=== PATIENT | male | born 1950 | race Caucasian/White ===

== ENCOUNTER 2020-01-21 08:00 | Outpatient (CLI) | payer MEDICARE | END 2020-01-21 08:01 | disposition critical access hospital (66) | LOC: EMS 08:00 | PROVIDERS: ATTEND Surgery | DX: R10.9 Unspecified abdominal pain (principal); R11.0 Nausea; R53.1 Weakness | CPT/HCPCS: A0425; A0427 ==

== ENCOUNTER 2020-01-21 08:28 | Emergency (ER) | payer MEDICARE ==
[2020-01-21] MEDS ORDERED: KETOROLAC 30 MG/ML VIAL IVP STA (08:35)
[2020-01-21] MEDS ORDERED: HYDROmorphone 1 MG/ML CARPUJECT IVP STA (08:38)
[2020-01-21] MEDS ORDERED: LIDOCAINE-MPF 2% 7.5 ML in SODIUM CHLORIDE 0.9% 50 ML IV STA (08:40)
[2020-01-21] MEDS ORDERED: SODIUM CHLORIDE 0.9% 1,000 ML IV STA ×2 (08:40→11:26)
--- NOTE | 2020-01-21 08:46 | ED Physician Documentation ---
History of Present Illness - Stated complaint Stated Complaint: FLANK PAIN - Chief complaint Chief Complaint: Abd Pain - History obtained from History obtained from: Patient, EMS - History of Present Illness Timing: Today Pain level max: 10 Pain level now: 10 Quality: stabbing - Additonal information Additional information: 69-year-old male presents to the emergency department with right flank pain. This started approximately 3 hours ago. Rated as 10 out of 10. Nonradiating. Nothing makes it better or worse. Does not take any medications at home. Has never had similar symptoms in the past. Review of Systems Ten Systems: 10 systems reviewed and negative Constitutional: denies: Fever, Chills Ears: denies: Ear pain Nose: denies: Rhinorrhea / runny nose, Congestion PD PAST MEDICAL HISTORY - Past Medical History Past Medical History: No - Present Medications Home Medications: Ambulatory Orders Medication Instructions Recorded Confirmed Ibuprofen [Motrin] 800 mg PO Q8H PRN #30 tablet 01/21/20 Ondansetron Odt [Zofran] 4 mg TL Q6H PRN #10 tablet 01/21/20 Oxycodone HCl/Acetaminophen 1 - 2 each PO Q6H PRN #14 tablet 01/21/20 [Percocet 5-325 mg Tablet] - Allergies Allergies/Adverse Reactions: Allergies Allergy/AdvReac Type Severity Reaction Status Date / Time Sulfa (Sulfonamide Allergy Unknown Verified 01/21/20 08:52 Antibiotics) - Living Situation Living Arrangement: reports: At home - Social History Does the pt drink ETOH?: Yes - Family History Family history: reports: Non contributory PD ED PE NORMAL - Vitals Vital signs reviewed: Yes - General General: Alert and oriented X 3, No acute distress, Other (Appears in pain) - HEENT HEENT: PERRL, Moist mucous membranes - Neck Neck: Supple, no meningeal sign - Cardiac Cardiac: RRR, Strong equal pulses - Respiratory Respiratory: No respiratory distress, Clear bilaterally - Abdomen Abdomen: Soft, Non tender, Non distended - Back Back: No CVA TTP, No spinal TTP - Derm Derm: Warm and dry - Extremities Extremities: No edema, No calf tenderness / cord - Neuro Neuro: Alert and oriented X 3, No motor deficit, No sensory deficit - Psych Psych: Normal mood, Normal affect Results - Vitals Vitals: Vital Signs - 24 hr 01/21/20 01/21/2020 08:28 09:35 10:00 Temperature 36.9 C Heart Rate 83 82 68 Respiratory 26 H 16 16 Rate Blood Pressure 109/44 L 168/99 H 159/94 H O2 Saturation 96 94 94 01/21/20 12:56 Temperature 36.8 C Heart Rate 66 Respiratory 18 Rate Blood Pressure 157/104 H O2 Saturation 95 Oxygen O2 Source Room air - Labs Labs: Laboratory Tests 01/21/20 01/21/20 01/21/20 08:52 08:52 12:30 WBC 10.6 RBC 5.01 Hgb 15.6 Hct 45.8 MCV 91.4 MCH 31.1 H MCHC 34.1 RDW 12.3 Plt Count 162 MPV 9.0 Neut # (Auto) 8.8 H Lymph # (Auto) 1.0 L [place] # (Auto) 0.7 Eos # (Auto) 0.0 Baso # (Auto) 0.1 Absolute Nucleated RBC 0.00 Nucleated RBC % 0.0 Sodium 140 Potassium 4.3 Chloride 106 Carbon Dioxide 24 Anion Gap 10.0 BUN 19 Creatinine 1.2 Estimated GFR (MDRD) 60 L Glucose 122 H Calcium 9.0 Total Bilirubin 0.8 AST 23 ALT 31 Alkaline Phosphatase 50 Total Protein 7.4 Albumin 4.2 Globulin 3.2 Albumin/Globulin Ratio 1.3 Lipase 23 Urine Color YELLOW Urine Clarity CLEAR Urine pH 7.0 Ur Specific [place] 1.020 Urine Protein NEGATIVE Urine Glucose (UA) NEGATIVE Urine Ketones NEGATIVE Urine Occult Blood NEGATIVE Urine Nitrite NEGATIVE Urine Bilirubin NEGATIVE Urine Urobilinogen 0.2 (NORMAL) Ur Leukocyte Esterase NEGATIVE Ur Microscopic Review NOT INDICATED Urine Culture Comments NOT INDICATED - Rads (name of study) CT abd.pelvis Radiology: Prelim report reviewed, EMP read contemporaneously, See rad report (Obstructing calculus in the right proximal ureter measuring 3-4 mm producing mild-moderate hydroureteronephrosis. ) PD MEDICAL DECISION MAKING - ED course Complexity details: reviewed results, re-evaluated patient, considered differential, d/w patient ED course: Patient with a right-sided ureteral stone. Pain resolved with Dilaudid, Toradol and IV lidocaine. Given IV fluids. No evidence of infection. Will prescribe pain medication for home and have him follow-up with his doctor for further care. Patient is well-appearing, nontoxic. Afebrile. No evidence of sepsis. Patient counseled regarding signs and symptoms for which I believe and urgent re-evaluation would be necessary. Patient with good understanding of and agr eement to plan and is comfortable going home at this time This document was made in part using voice recognition software. While efforts are made to proofread this document, sound alike and grammatical errors may occur. Departure - Departure Disposition: 01 Home, Self Care Clinical Impression: Kidney stone Condition: Good Instructions: ED Stone Renal W Colic Follow-Up: your,doctor in 1 week [Other] Prescriptions: Ibuprofen [Motrin] 800 mg PO Q8H PRN #30 tablet PRN Reason: PAIN &/OR FEVER Oxycodone HCl/Acetaminophen [Percocet 5-325 mg Tablet] 1 - 2 each PO Q6H PRN #14 tablet PRN Reason: pain Ondansetron Odt [Zofran] 4 mg TL Q6H PRN #10 tablet PRN Reason: Nausea / Vomiting Comments: You do have you have a 3 mm kidney stone. Follow-up with your doctor for further care. Return if you worsen. Do not drink alcohol or drive while on narcotic pain medicine. Note that many narcotic pain relievers also contain tylenol/acetaminophen. Please ensure that your total dose of acetaminophen from all sources does not exceed 3 grams (3000mg) per day. You may constipated on this medication, take a stool softener such as "Colace" twice a day while you are on it. Also recommend a [id number] laxative such as senna or MiraLAX any day that you do not have a bowel movement. If you received narcotic pain medication in the emergency department, do not drive or operate machinery for the next 24 hours.
[2020-01-21 09:02] LABS: BASOPHILS # (AUTO) 0.1 10^3/uL (0.0-0.1); BASOPHILS % (AUTO) 0.5 %; EOSINOPHILS % (AUTO) 0.4 %; HGB - HEMOGLOBIN 15.6 g/dL (14.0-18.0); LYMPHOCYTES % (AUTO) 9.4 %; MEAN CORPUSCULAR HEMOGLOBIN 31.1 pg (27.0-31.0); MEAN CORPUSCULAR HGB CONC 34.1 g/dL (32.0-36.0); MEAN CORPUSCULAR VOLUME 91.4 fL (80.0-94.0); MONOCYTES # (AUTO) 0.7 10^3/uL (0.0-1.0); MONOCYTES % (AUTO) 6.4 %; NEUTROPHILS # (AUTO) 8.8 10^3/uL (1.5-6.6); PLT - PLATELET COUNT 162 10^3/uL (130-450); RED BLOOD COUNT 5.01 10^6/uL (4.70-6.10); RED CELL DISTRIBUTION WIDTH 12.3 % (12.0-15.0); WHITE BLOOD COUNT 10.6 x10^3/uL (4.8-10.8)
[2020-01-21 09:10] LABS: ALBUMIN 4.2 g/dL (3.2-5.5); ALBUMIN/GLOBULIN RATIO 1.3 (1.0-2.2); BILIRUBIN,TOTAL 0.8 mg/dL (0.2-1.0); CREATININE 1.2 mg/dL (0.6-1.2); TOTAL PROTEIN 7.4 g/dL (6.7-8.2)
--- NOTE | 2020-01-21 09:30 | CT Report ---
PROCEDURE: Abdomen/Pelvis WO INDICATIONS: R flank pain, poss ureteral stone? TECHNIQUE: Noncontrast 5 mm thick sections acquired from the diaphragms to the symphysis. 5 mm coronal and sagi ttal reformats were then performed. For radiation dose reduction, the following was used: automated exposure control, adjustment of mA and/or kV according to patient size. COMPARISON: None. FINDINGS: Image quality: Excellent. ABDOMEN: Lung bases: Lung bases are clear. Heart size is normal. Urinary system: There is an obstructing 3-4 mm calculus in the proximal right ureter (series 3 image 52 and series 6 image 34). This produces mild to moderate hydroureteronephrosis. There is right nephr omegaly and perinephric fat stranding. Remaining right ureter is unremarkable. The left kidney and ur eter are normal. The urinary bladder is within normal limits. Solid organs: The lack of IV contrast limits evaluation of the solid abdominal viscera, particularly for infectious or neoplastic process. Within this limitation, the liver, spleen, gallbladder, pancrea s, and adrenal glands are normal. Peritoneum and bowel: Diverticulosis with no findings of diverticulitis. Unenhanced bowel loops demon strate normal wall thickness and caliber. No free fluid or air. Nodes and vessels: No retroperitoneal or mesenteric adenopathy by size criteria. Aorta and inferior vena cava are normal in caliber. Miscellaneous: No ventral hernias. PELVIS: Genitourinary: Bladder wall thickness is normal. Prostate is mildly enlarged but otherwise normal. Miscellaneous: Bilateral fat-containing inguinal hernias. No partial enlarged pelvic or inguinal lymp h nodes. Bones: No suspicious bony lesions. No vertebral body compression fractures. IMPRESSION: Obstructing calculus in the right proximal ureter measuring 3-4 mm producing mild-moderate hydrourete ronephrosis. Reviewed by: Stefano Tellez MD on 01/21/2020 9:29 AM PDT Approved by: Stefano Tellez MD on 01/21/2020 9:29 AM PDT Station ID: [id number]
[2020-01-21 12:37] LABS: BILIRUBIN,URINE NEGATIVE (NEGATIVE); GLUCOSE, URINE (UA) NEGATIVE (NEGATIVE); KETONES,URINE (UA) NEGATIVE (NEGATIVE); LEUKOCYTE ESTERASE, URINE NEGATIVE (NEGATIVE); NITRITE,URINE NEGATIVE (NEGATIVE); OCCULT BLOOD,URINE NEGATIVE (NEGATIVE); PROTEIN,URINE NEGATIVE (NEGATIVE); UROBILINOGEN,URINE 0.2 (NORMAL) E.U./dL (NORMAL)
[2020-01-21 12:38] LABS: CLARITY,URINE CLEAR (CLEAR)
[2020-01-21 12:57] VITALS: BP 157/104
== END 2020-01-21 13:06 | disposition home or self-care (01) ==
LOC: EDUNIT# → ED 08:28
DX: N13.2 Hydronephrosis with renal and ureteral calculous obstruction (principal)
CPT/HCPCS: 36415; 74176; 80053; 81003; 83690; 85025; 96361; 96374; 99284; J1170; J7040; 81001; 87086